=== PATIENT | male | born 1960 | race Caucasian/White ===

== ENCOUNTER 2023-03-04 16:32 | Emergency (ER) | payer SELFPAY ==
[~2023-03-04] VITALS: Ht 177.8 cm; Wt 90.0 kg
[2023-03-04 16:43] VITALS: BP 116/74
[2023-03-04] MEDS ORDERED: bacitracin 15gm ointment TP ONE (16:50)
[2023-03-04] MEDS ORDERED: LIDOcaine 1% W/epiNEPHrine 1:100,000 20ml vial IJ ONE (16:50)
== END 2023-03-04 17:28 | disposition home or self-care (01) ==
LOC: ER 16:33
DX: S41.111A Laceration without foreign body of right upper arm, initial encounter (principal); W45.8XXA Other foreign body or object entering through skin, initial encounter; Y93.89 Activity, other specified; Y92.89 Other specified places as the place of occurrence of the external cause; Y99.8 Other external cause status
CPT/HCPCS: 12004; 99284; J7030; A6449